=== PATIENT | female | born 1950 | race Two or more races ===

== ENCOUNTER → 2023-01-09 07:08 | Outpatient (CLI) | payer OTHER, BC ==
[~2023-01-09 07:08] MED LIST: BICARSIM60 MG PO; CEPHALEXIN500 MG PO; COZAAR100 MG PO; DICYCLOMINE HCL20 MG PO; DOLOGEN CAPLET1 TAB PO; LODINE200 MG PO; METRONIDAZOLE500 MG PO
== END | disposition home or self-care (01) ==
LOC: LAB 07:08
PROVIDERS: ATTEND Orthopaedic Surgery Orthopaedic Surgery of the Spine
DX: D68.9 Coagulation defect, unspecified (principal); D64.9 Anemia, unspecified; E03.9 Hypothyroidism, unspecified; R07.9 Chest pain, unspecified

== ENCOUNTER → 2023-01-16 08:00 | Outpatient (CLI) | payer OTHER, BC ==
[~2023-01-16] VITALS: Ht 162.6 cm; Wt 72.6 kg
== END | disposition home or self-care (01) ==
LOC: LAB 08:00 → EDSTATUS 01-21 07:00 → SURG 01-21 07:00
PROVIDERS: ATTEND Orthopaedic Surgery Orthopaedic Surgery of the Spine
DX: Z01.810 Encounter for preprocedural cardiovascular examination (principal); Z20.828 Contact with and (suspected) exposure to other viral communicable diseases; U07.1 COVID-19; M50.01 Cervical disc disorder with myelopathy, high cervical region

== ENCOUNTER 2023-02-15 09:18 | Outpatient (CLI) | payer OTHER, BC | END 2023-02-15 09:19 | disposition home or self-care (01) | LOC: LAB 09:18 | DX: E03.8 Other specified hypothyroidism (principal) ==

== ENCOUNTER 2023-03-06 09:57 | Outpatient (CLI) | payer OTHER, BC | END 2023-03-06 10:07 | disposition home or self-care (01) | LOC: LAB 09:57 | PROVIDERS: ATTEND Orthopaedic Surgery Orthopaedic Surgery of the Spine | DX: D68.9 Coagulation defect, unspecified (principal); D64.9 Anemia, unspecified; E03.9 Hypothyroidism, unspecified ==

== ENCOUNTER 2023-03-15 08:28 | Inpatient (IN) | payer OTHER, BC ==
[~2023-03-15] VITALS: Ht 162.6 cm; Wt 88.0 kg
[2023-03-15] MEDS ORDERED: JANUMET 50-5001 EACH PO (11:25)
[2023-03-15] MEDS ORDERED: VASOTEC20 M1 PO (11:25)
[2023-03-15] MEDS ORDERED: D3 + K2 DOTS 11 EACH PO (11:26)
[2023-03-15] MEDS ORDERED: CLIMARA1 EACH TD (11:26)
[2023-03-15] MEDS ORDERED: FENOFIBRATE43 MG PO (11:26)
[2023-03-19] MEDS ORDERED: PERCOCET 5-3251 EACH PO (07:19)
[2023-03-19] MEDS ORDERED: COLACE100 MG PO (07:20)
== END 2023-03-22 18:43 | DRG 471 ==
LOC: SURG 03-19 04:54 → O/R 03-19 04:54 → SURG 03-19 07:00
PROVIDERS: ADMIT Orthopaedic Surgery Orthopaedic Surgery of the Spine; ATTEND Orthopaedic Surgery Orthopaedic Surgery of the Spine
PROC: 0RT30ZZ Resection of Cervical Vertebral Disc, Open Approach (ICD-10-PCS; 2023-03-19)
PROC: 07DS0ZZ Extraction of Vertebral Bone Marrow, Open Approach (ICD-10-PCS; 2023-03-19)
PROC: 0RG10A0 Fusion of Cervical Vertebral Joint with Interbody Fusion Device, Anterior Approach, Anterior Column, Open Approach (ICD-10-PCS; principal; 2023-03-19 07:00)
DX: M50.01 Cervical disc disorder with myelopathy, high cervical region (principal); S14.123A Central cord syndrome at C3 level of cervical spinal cord, initial encounter; M48.02 Spinal stenosis, cervical region

== ENCOUNTER 2023-09-02 09:10 | Outpatient (CLI) | payer OTHER, BC ==
[~2023-09-02 09:10] MED LIST changes: +CLIMARA1 EACH TD; +COLACE100 MG PO; +D3 + K2 DOTS 11 EACH PO; +FENOFIBRATE43 MG PO; +JANUMET 50-5001 EACH PO; +PERCOCET 5-3251 EACH PO; +VASOTEC20 M1 PO
[2023-09-02 10:57] LABS: PH,URINE 5.5 (5.0-8.0); URINE APPEARANCE Clear; URINE BILIRRUBIN Negative (NEGATIVE); URINE BLOOD Negative; URINE COLOR Yellow; URINE GLUCOSE Negative (NEGATIVE); URINE LEUKOCYTE Negative; URINE NITRATE Negative; URINE PROTEIN Negative (NEGATIVE); URINE UROBILINOGEN 0.2 E.U./dl
[2023-09-02 11:02] LABS: URINE EPITHELIAL CELLS 14.2 uL (0.0-38.8); URINE RBC 2.2 uL (0.0-20.8); URINE WBC 36.1 uL (0.0-23.2)
[2023-09-02 11:08] LABS: HEMATOCRIT 37.3 % (36.0-45.00); HEMOGLOBIN 12.1 g/dL (12.0-15.00); MEAN CELL VOLUME 70.3 fL (80.00-100.00); MEAN CORPUSCULAR HEMOGLOBIN 22.8 pg (27.00-32.0); MEAN CORPUSCULAR HGB CONC 32.4 g/dl (32.0-36.0); PLATELET COUNT 297 K/uL (150-450); RED CELL DISTRIBUTION WIDTH 14.8 % (11.5-14.5)
[2023-09-02 11:22] LABS: ALBUMIN 3.8 gm/dL (3.4-5.0); BILIRUBIN TOTAL 0.56 mg/dL (0.3-1.2); CHOL HDL RATIO 2.6 (0-5.0); CREATININE SERUM 0.73 mg/dL (0.55-1.02); FREE TRIODOTIRONINE 1.66 pg/ml (2.18-3.98); GFR 77.72; GLOBULINA 2.9 G/DL (2.4-3.5); POTASSIUM 4.2 mEq/L (3.5-5.1); T4 FREE 1.13 NG/ML (0.76-1.46); TOTAL PROTEIN 6.7 gm/dL (6.4-8.2); TSH 2.04 uIU/mL (0.358-3.74)
== END 2023-09-02 09:12 | disposition home or self-care (01) ==
LOC: LAB 09:10
PROVIDERS: ATTEND General Practice
DX: E11.69 Type 2 diabetes mellitus with other specified complication (principal); I11.9 Hypertensive heart disease without heart failure; D64.9 Anemia, unspecified; E78.2 Mixed hyperlipidemia; Z13.29 Encounter for screening for other suspected endocrine disorder; Z12.11 Encounter for screening for malignant neoplasm of colon; E03.9 Hypothyroidism, unspecified

== ENCOUNTER 2025-02-26 11:01 | Emergency (ER) | payer OTHER, BC ==
[~2025-02-26] VITALS: Ht 160 cm; Wt 63.5 kg
[2025-02-26] MEDS ORDERED: KETOROLAC TROMETHAMINE 60 MG VIAL IM ONE ×2 (12:00→12:13)
[2025-02-26] MEDS ORDERED: ORPHENADRINE CITRATE 30 MG/ML AMPUL IM ONE (12:00)
[2025-02-26] MEDS ORDERED: ORPHENADRINE CITRATE 30 MG/ML AMPUL ONE (12:13)
[2025-02-26 12:33] LABS: PH,URINE 7.5 (5.0-8.0); URINE APPEARANCE Clear; URINE BACTERIA 604.3 uL (0.0-1933); URINE BILIRRUBIN Negative (NEGATIVE); URINE BLOOD Negative; URINE COLOR Yellow; URINE EPITHELIAL CELLS 28.4 uL (0.0-38.8); URINE GLUCOSE Negative (NEGATIVE); URINE KETONE Negative (NEGATIVE); URINE LEUKOCYTE Small; URINE NITRATE Negative; URINE PROTEIN Negative (NEGATIVE); URINE RBC 2.3 uL (0.0-20.8); URINE UROBILINOGEN 0.2 E.U./dl; URINE WBC 30.3 uL (0.0-23.2)
[2025-02-26 12:35] LABS: URINE CAST 0.14 uL (0.0-1.40)
== END 2025-02-26 19:04 | disposition home or self-care (01) ==
LOC: ER 11:01
PROVIDERS: Emergency Medicine
DX: M62.830 Muscle spasm of back (principal); M50.01 Cervical disc disorder with myelopathy, high cervical region; I10 Essential (primary) hypertension; E03.8 Other specified hypothyroidism; E11.9 Type 2 diabetes mellitus without complications; Z79.84 Long term (current) use of oral hypoglycemic drugs; Z88.4 Allergy status to anesthetic agent
CPT/HCPCS: 36415; 96372; 99282; J1885; J2360

== ENCOUNTER 2025-09-04 17:34 | Emergency (ER) | payer OTHER, BC ==
[~2025-09-04] VITALS: Ht 157.5 cm; Wt 72.6 kg
[2025-09-04] MEDS ORDERED: JANUMET 50-5001 EACH PO (17:59)
[2025-09-04 20:31] LABS: BASO % 0.7 % (0.1-1.2); EOS # 0.07 (0.04-0.54); EOS % 1.2 % (0.7-7.0); LYMPH # 1.58 (1.18-3.74); LYMPH % 28.0 % (19.3-53.1); MEAN PLATELET VOLUME 10.30 fl (9.4-12.4); MONO # 0.38 (0.24-0.82); MONO % 6.7 % (4.7-12.5); NEUT # 3.57 (1.56-6.13); NEUT % 63.2 % (34.0-71.1); RED CELL DISTRIBUTION WIDTH 13.3 % (11.6-14.4)
[2025-09-04 20:40] LABS: ERYTHROCYTE SEDIMENTATION RATE 24 mm/hr (0-30)
[2025-09-04 20:52] LABS: ALT/SGPT 29 U/L (12-78); AST/SGOT 26 U/L (15-37); BILIRUBIN TOTAL 0.58 mg/dL (0.3-1.2); BUN CREA RATIO 18 (7.0-25.0); CREATININE SERUM 0.74 mg/dL (0.55-1.02); GFR 76.10; GLOBULINA 3.6 G/DL (2.4-3.5); GLUCOSE FASTING 91 mg/dL (65-100); OSMOLALITY SERUM 279 MOSM/KG (275-295)
[2025-09-05 03:29] LABS: URINE APPEARANCE Clear; URINE BILIRRUBIN Negative (NEGATIVE); URINE BLOOD Negative; URINE COLOR Yellow; URINE GLUCOSE Negative (NEGATIVE); URINE KETONE Negative (NEGATIVE); URINE LEUKOCYTE Trace; URINE NITRATE Negative; URINE PROTEIN Negative (NEGATIVE); URINE UROBILINOGEN 0.2 E.U./dl
[2025-09-05 03:33] LABS: URINE EPITHELIAL CELLS 46.2 uL (0.0-38.8); URINE RBC 8.2 uL (0.0-20.8); URINE WBC 19.0 uL (0.0-23.2)
[2025-09-05 03:34] LABS: URINE CAST 0.00 uL (0.0-1.40)
[2025-09-05] MEDS ORDERED: ENOXAPARIN SODIUM 40 MG/0.4 ML SYRINGE SUBCUTANEO ONE (04:00)
[2025-09-05] MEDS ORDERED: BACTRIM DS TAB1 EACH PO (17:47)
[2025-09-05] MEDS ORDERED: PEPCID AC20 MG PO (17:47)
== END 2025-09-05 20:58 | disposition home or self-care (01) ==
LOC: ER
PROVIDERS: Preventive Medicine Public Health & General Preventive Medicine
DX: M79.672 Pain in left foot (principal); R22.42 Localized swelling, mass and lump, left lower limb; Z88.8 Allergy status to other drugs, medicaments and biological substances
CPT/HCPCS: 36415; 93970; 96372; 99284; J1650